=== PATIENT | male | born 1985 | race Caucasian/White ===

== ENCOUNTER 2019-08-08 08:59 | Emergency (ER) | payer OTHER | END 2019-08-08 09:58 | disposition other institution (70) | LOC: ED 08:59 | DX: Z02.89 Encounter for other administrative examinations (principal) ==

== ENCOUNTER 2019-08-08 08:59 | Emergency (ER) | payer OTHER ==
[~2019-08-08] VITALS: Ht 175.3 cm; Wt 72.6 kg
[2019-08-08 09:01] VITALS: BP 145/99; Ht 175.3 cm; Wt 72.6 kg
== END 2019-08-08 09:58 | disposition other institution (70) ==
LOC: ED 08:59
DX: S09.8XXA Other specified injuries of head, initial encounter (principal); S19.9XXA Unspecified injury of neck, initial encounter; S60.414A Abrasion of right ring finger, initial encounter; S60.416A Abrasion of right little finger, initial encounter; F17.210 Nicotine dependence, cigarettes, uncomplicated; Y04.2XXA Assault by strike against or bumped into by another person, initial encounter; Y93.89 Activity, other specified; Y92.89 Other specified places as the place of occurrence of the external cause; Y99.8 Other external cause status
CPT/HCPCS: 90715; 99406